=== PATIENT | male | born 1950 | race Two or more races ===

== ENCOUNTER 2017-09-03 08:38 | Outpatient (CLI) | payer OTHER | END 2017-09-03 08:49 | disposition home or self-care (01) | LOC: NUCLEAR 08:38 | DX: R10.11 Right upper quadrant pain (principal) | CPT/HCPCS: 78227; A9537; J2805 ==

== ENCOUNTER 2017-09-30 10:40 | Outpatient (CLI) | payer OTHER | END 2017-09-30 10:57 | disposition home or self-care (01) | LOC: RAD 10:40 | DX: M17.0 Bilateral primary osteoarthritis of knee (principal) ==

== ENCOUNTER 2018-07-14 14:29 | Outpatient (CLI) | payer OTHER | END 2018-07-14 14:37 | disposition home or self-care (01) | LOC: RAD 14:29 | DX: M54.5 Low back pain (principal) ==

== ENCOUNTER 2019-09-04 13:24 | Outpatient (CLI) | payer OTHER | END 2019-09-04 13:37 | disposition home or self-care (01) | LOC: SONOGRAMA 13:24 | DX: K40.90 Unilateral inguinal hernia, without obstruction or gangrene, not specified as recurrent (principal) ==

== ENCOUNTER 2019-10-19 15:11 | Outpatient (CLI) | payer OTHER | END 2019-10-19 15:15 | disposition home or self-care (01) | LOC: RAD 15:11 | DX: J11.1 Influenza due to unidentified influenza virus with other respiratory manifestations (principal) ==

== ENCOUNTER 2020-04-01 14:52 | Outpatient (CLI) | payer OTHER | END 2020-04-01 14:57 | disposition home or self-care (01) | LOC: RAD 14:52 | PROVIDERS: ATTEND Orthopaedic Surgery | DX: M25.522 Pain in left elbow (principal) ==

== ENCOUNTER 2020-10-31 14:47 | Outpatient (CLI) | payer OTHER | END 2020-10-31 14:51 | disposition home or self-care (01) | LOC: RAD 14:47 | PROVIDERS: ATTEND Orthopaedic Surgery | DX: M16.0 Bilateral primary osteoarthritis of hip (principal) ==

== ENCOUNTER → 2020-11-25 | Outpatient (CLI) | payer OTHER ==
[~2020-11-25] MED LIST: ADVIL PM CAPLE1 EACH PO; COLACE100 MG PO; NEURONTIN600 M1 PO; PERCOCET 5-3251 EACH PO; TYLENOL325 MG PO
== END | disposition home or self-care (01) ==
LOC: RAD 14:55
DX: R07.89 Other chest pain (principal); Z01.818 Encounter for other preprocedural examination; K40.90 Unilateral inguinal hernia, without obstruction or gangrene, not specified as recurrent

== ENCOUNTER 2021-03-31 15:14 | Outpatient (CLI) | payer OTHER | END 2021-03-31 15:19 | disposition home or self-care (01) | LOC: RAD 15:14 | PROVIDERS: ATTEND Orthopaedic Surgery Adult Reconstructive Orthopaedic Surgery | DX: I11.9 Hypertensive heart disease without heart failure (principal) ==

== ENCOUNTER 2021-07-15 07:15 | Outpatient (CLI) | payer OTHER | END 2021-07-15 07:23 | disposition home or self-care (01) | LOC: RAD 07:15 | PROVIDERS: ATTEND Orthopaedic Surgery Adult Reconstructive Orthopaedic Surgery | DX: Z96.651 Presence of right artificial knee joint (principal); M19.072 Primary osteoarthritis, left ankle and foot ==

== ENCOUNTER 2021-09-22 09:59 | Outpatient (CLI) | payer OTHER | END 2021-09-22 10:01 | disposition home or self-care (01) | LOC: SONOGRAMA 09:59 | PROVIDERS: ATTEND Family Medicine | DX: R07.9 Chest pain, unspecified (principal); M76.02 Gluteal tendinitis, left hip ==

== ENCOUNTER 2021-11-13 08:25 | Outpatient (CLI) | payer OTHER | END 2021-11-13 08:26 | disposition home or self-care (01) | LOC: SONOGRAMA 08:25 | PROVIDERS: ATTEND Specialist | DX: K75.81 Nonalcoholic steatohepatitis (NASH) (principal) ==

== ENCOUNTER 2021-12-10 10:42 | Outpatient (CLI) | payer OTHER | END 2021-12-10 10:47 | disposition home or self-care (01) | LOC: RAD 10:42 | PROVIDERS: ATTEND Orthopaedic Surgery | DX: M18.0 Bilateral primary osteoarthritis of first carpometacarpal joints (principal) ==

== ENCOUNTER 2022-02-18 07:29 | Outpatient (CLI) | payer OTHER | END 2022-02-18 07:37 | disposition home or self-care (01) | LOC: RAD 07:29 | PROVIDERS: ATTEND Orthopaedic Surgery Adult Reconstructive Orthopaedic Surgery | DX: I11.9 Hypertensive heart disease without heart failure (principal); M16.0 Bilateral primary osteoarthritis of hip ==

== ENCOUNTER 2022-07-08 07:48 | Outpatient (CLI) | payer OTHER | END 2022-07-08 07:54 | disposition home or self-care (01) | LOC: RAD 07:48 | PROVIDERS: ATTEND Orthopaedic Surgery Adult Reconstructive Orthopaedic Surgery | DX: Z96.641 Presence of right artificial hip joint (principal); Z96.651 Presence of right artificial knee joint ==

== ENCOUNTER 2022-12-22 07:09 | Outpatient (CLI) | payer OTHER | END 2022-12-22 07:13 | disposition home or self-care (01) | LOC: RAD 07:09 | PROVIDERS: ATTEND Family Medicine | DX: M54.2 Cervicalgia (principal) ==

== ENCOUNTER 2023-04-08 07:33 | Outpatient (CLI) | payer OTHER | END 2023-04-08 07:39 | disposition home or self-care (01) | LOC: SONOGRAMA 07:33 | PROVIDERS: ATTEND Family Medicine | DX: K40.91 Unilateral inguinal hernia, without obstruction or gangrene, recurrent (principal) ==

== ENCOUNTER 2023-11-16 07:48 | Outpatient (CLI) | payer OTHER | END 2023-11-16 07:52 | disposition home or self-care (01) | LOC: RAD 07:48 | PROVIDERS: ATTEND Family Medicine | DX: M54.50 Low back pain, unspecified (principal); M25.541 Pain in joints of right hand; M25.542 Pain in joints of left hand ==

== ENCOUNTER → 2025-01-10 09:41 | Outpatient (CLI) | payer OTHER | END | disposition home or self-care (01) | LOC: NUCLEAR 09:41 | PROVIDERS: ATTEND Family Medicine | DX: M81.0 Age-related osteoporosis without current pathological fracture (principal) ==

== ENCOUNTER 2025-01-10 10:15 | Outpatient (CLI) | payer OTHER | END 2025-01-10 10:19 | disposition home or self-care (01) | LOC: RAD 10:15 | PROVIDERS: ATTEND Family Medicine | DX: M25.542 Pain in joints of left hand (principal); M25.541 Pain in joints of right hand ==